=== PATIENT | female | born 1985 | race Caucasian/White ===

== ENCOUNTER 2017-03-08 20:38 | Inpatient (IN) | payer MEDICAID ==
[~2017-03-08] VITALS: Ht 170.2 cm; Wt 67.8 kg
[2017-03-08 21:54] LABS: UA SPECIFIC GRAVITY 1.025 (1.005-1.035); microscopic required? YES; urine erythrocyte NEGATIVE (NEGATIVE)
[2017-03-08 21:59] LABS: BASOPHIL % 0.3 % (0-2); PLATELET COUNT 191 x10^3mcL (130-400); RED CELL DISTRIBUTION WIDTH 13.1 % (11.5-14.5)
[2017-03-08 22:15] LABS: ALKALINE PHOSPHATASE 93 U/L (46-116); ALT/SGPT 29 U/L (14-59); AMYLASE 33 U/L (25-115); BILIRUBIN TOTAL 0.3 mg/dL (0.20-1.00); CARBON DIOXIDE 25.8 mmol/L (21-32); CHLORIDE SERUM 102 mmol/L (98-107); CREATININE SERUM 0.7 mg/dL (0.6-1.0); GFR1 > 60 mL/min; GLUCOSE SERUM 86 mg/dL (74-106); LIPASE 120 IU/L (73-393); POTASSIUM SERUM 3.1 mmol/L (3.5-5.1); SODIUM SERUM 136 mmol/L (136-145); TOTAL PROTEIN, SERUM 7.6 g/dL (6.4-8.2)
[2017-03-08 22:30] LABS: ALBUMIN 3.6 g/dL (3.4-5.0); AST/SGOT 33 U/L (15-37); CALCIUM 8.5 mg/dL (8.5-10.1)
[2017-03-09 00:05] LABS: MAGNESIUM 1.8 mg/dL (1.8-2.4); PHOSPHOROUS 3.5 mg/dL (2.5-4.9)
[2017-03-09 00:11] LABS: FREE T4 1.18 ng/dL (0.76-1.46); FREE THYROXINE INDEX 2.6 ug/dL (1.4-4.5); T4(THYROXINE) 7.5 ug/dL (4.7-13.3)
[2017-03-09 00:13] LABS: CHOLESTEROL/HDL RATIO 2.4
[2017-03-09 00:21] LABS: T3 TOTAL 1.09 ng/mL
[2017-03-09 01:14] VITALS: BP 118/76
[2017-03-09 06:45] LABS: AMPHETAMINE QUAL UR NONE DETECTED (NEG <=1000)
[2017-03-09 07:32] LABS: BASOPHIL % 0.3 % (0-2); PLATELET COUNT 164 x10^3mcL (130-400); RED CELL DISTRIBUTION WIDTH 13.1 % (11.5-14.5)
[2017-03-09 07:36] LABS: CALCIUM 7.8 mg/dL (8.5-10.1); CARBON DIOXIDE 24.6 mmol/L (21-32); CHLORIDE SERUM 109 mmol/L (98-107); CREATININE SERUM 0.6 mg/dL (0.6-1.0); GFR1 > 60 mL/min; GLUCOSE SERUM 82 mg/dL (74-106); POTASSIUM SERUM 3.9 mmol/L (3.5-5.1); SODIUM SERUM 140 mmol/L (136-145)
[2017-03-09 10:09] VITALS: BP 105/63
[2017-03-09 12:50] VITALS: BP 109/63
[2017-03-09 15:15] VITALS: BP 100/46
[2017-03-09 17:39] VITALS: BP 107/59
[2017-03-09 20:45] VITALS: BP 107/52
[2017-03-10 05:18] VITALS: BP 101/45
[2017-03-10 07:30] LABS: BASOPHIL % 0 % (0-2); PLATELET COUNT 191 x10^3mcL (130-400); RED CELL DISTRIBUTION WIDTH 13.1 % (11.5-14.5)
[2017-03-10 08:43] LABS: CALCIUM 8.8 mg/dL (8.5-10.1); CARBON DIOXIDE 21.3 mmol/L (21-32); CHLORIDE SERUM 103 mmol/L (98-107); CREATININE SERUM 0.6 mg/dL (0.6-1.0); GFR1 > 60 mL/min; GLUCOSE SERUM 95 mg/dL (74-106); POTASSIUM SERUM 4.4 mmol/L (3.5-5.1); SODIUM SERUM 135 mmol/L (136-145)
[2017-03-10 10:14] VITALS: BP 99/47
[2017-03-10 16:40] VITALS: BP 102/42
[2017-03-10 20:16] VITALS: BP 95/50
[2017-03-11 05:59] VITALS: BP 115/59
[2017-03-11 06:09] LABS: BASOPHIL % 0.8 % (0-2); PLATELET COUNT 182 x10^3mcL (130-400); RED CELL DISTRIBUTION WIDTH 13.3 % (11.5-14.5)
[2017-03-11 06:30] LABS: CALCIUM 7.7 mg/dL (8.5-10.1); CARBON DIOXIDE 26.3 mmol/L (21-32); CHLORIDE SERUM 109 mmol/L (98-107); CREATININE SERUM 0.7 mg/dL (0.6-1.0); GFR1 > 60 mL/min; GLUCOSE SERUM 85 mg/dL (74-106); POTASSIUM SERUM 3.7 mmol/L (3.5-5.1); SODIUM SERUM 142 mmol/L (136-145)
[2017-03-11 10:27] VITALS: BP 111/67
[2017-03-11] MEDS ORDERED: ACETAMINOPHEN-H1 TA1 PO (11:53)
[2017-03-11] MEDS ORDERED: ZOFRAN ODT4 MG SL (11:54)
[2017-03-11] MEDS ORDERED: MOT600 PO (11:54)
[2017-03-11 11:58] VITALS: BP 111/67
== END 2017-03-11 13:25 | disposition home or self-care (01) | DRG 225 ==
LOC: ED 20:38 → MU 22:58 → DU 22:58 → MU 03-09 08:23
PROVIDERS: Specialist; ADMIT Family Medicine
PROC: 0DTJ4ZZ Resection of Appendix, Percutaneous Endoscopic Approach (ICD-10-PCS; principal; 2017-03-08)
DX: K35.80 Unspecified acute appendicitis (principal); N17.0 Acute kidney failure with tubular necrosis; N39.0 Urinary tract infection, site not specified; E86.0 Dehydration; E87.6 Hypokalemia; R82.4 Acetonuria; E03.9 Hypothyroidism, unspecified; D64.9 Anemia, unspecified; Z68.24 Body mass index [BMI] 24.0-24.9, adult
CPT/HCPCS: 83880; 84439; 94150; J0330; J0694; J1170; J1885; J2270; J2405; J2704; J2710; J3010; J3480; J3490; J7030; J7050; J7120; Q0092

== ENCOUNTER 2018-08-08 14:18 | Emergency (ER) | payer OTHER ==
[~2018-08-08] VITALS: Ht 170.2 cm; Wt 69.4 kg
[~2018-08-08 14:18] MED LIST: ACETAMINOPHEN-H1 TA1 PO; MOT600 PO; ZOFRAN ODT4 MG SL
[2018-08-08 14:40] VITALS: BP 119/79; Ht 170.2 cm; Wt 69.4 kg
== END 2018-08-08 19:40 | disposition home or self-care (01) ==
LOC: ED 14:18
DX: R51 Headache (principal)
CPT/HCPCS: J1885; J2765